=== PATIENT | female | born 1960 | race Caucasian/White ===

== ENCOUNTER 2017-04-28 21:38 | Emergency (ER) | payer BC ==
[~2017-04-28] VITALS: Ht 170.2 cm; Wt 64.2 kg
[2017-04-28 21:42] VITALS: BP 164/83; TEMP 36.6; Ht 170.2 cm; Wt 64.2 kg
[2017-04-29 00:34] VITALS: PULSE 61; O2SAT 99
--- NOTE | 2017-04-29 00:37 | EMERGENCY ROOM VISIT NOTE ---
History First contact with patient: 23:24 Chief Complaint: EYE ASSESSMENT Stated Complaint: FLASHING LIGHT IN LEFT EYE History of Present Illness The patient is a 56 year old female who presents to the Emergency Room with complaints of a left visual disturbance. The patient reports a prior history of retinal detachment in the right eye approximately 6-7 months ago. The patient is currently under the management of Dr. Sheffield at [facility]. Her last exam was 04/04/17, showing improvement of her right eye. She was warned that she is at high risk for similar detachment in the left eye within the next 12 months. The patient reports that she was doing a presentation this afternoon when she noticed a bright white flash in the left upper visual field. She then had mild central blurring of the eye that resolved within a few hours. This evening while driving, she then reported a similar bright white flash that happened several times with blurred vision that was similar to the afternoon incident. The visual disturbance then resolved until she was in the waiting room in our department with a similar bright flash and visual disturbance. At the current time, the patient denies any significant disturbance. She denies any recent head injury. She denies any history of temporal arteritis, CVA/TIA, chronic headaches, migraines or other neurologic conditions. Review of Systems 10 system review was performed and was negative except for pertinent positives and negatives as indicated in history of present illness Past Medical/Surgical History Medical Problems: (1) Retinal detachment Surgical Problems: (1) History of delivery Family History No significant family history Social History Smoking Status: Never Smoker Alcohol Use: occasionally Marital Status: Occupation Status: employed Current/Historical Medications No Active Prescriptions or Reported Meds Allergies Coded Allergies: No Known Allergies (Unverified , 04/28/17) Physical Exam Vital Signs Date Time Temp Pulse Resp B/P (MAP) Pulse Ox O2 Delivery O2 Flow Rate FiO2 04/29/17 00:34 61 16 99 Room Air 04/28/17 21:42 36.6 56 18 164/83 98 Room Air Right Eye Acuity: 20/25 Left Eye Acuity: 20/25 Physical Exam CONSTITUTIONAL: Healthy and well nourished. Alert and oriented X 3 with positive affect. She does not appear in any acute distress. HEENT: Normocephalic, atraumatic. Pupils equal, round and reactive. Facial edema. No globe deformity. No conjunctival injection. No visual field defects. EOMs intact. NECK: Full active range of motion without discomfort. No JVD or carotid bruits. RESPIRATORY: Clear to auscultation bilaterally with no wheezing, crackles, rhonchi or stridor. CARDIOVASCULAR: Regular rate and rhythm with no murmurs, rubs or gallops. MUSCULOSKELETAL: Full range of motion of all joints without discomfort. INTEGUMENTARY: No rash or other significant dermatologic conditions noted. NEUROLOGIC: Cranial nerves II-XII grossly intact. No focal neurologic deficits noted. Medical Decision & Procedures Laboratory Results Test 04/29/17 00:12 Erythrocyte Sedimentation Rate 4 mm/hr (0-21) ED Course Patient history and physical exam were performed. Nurse's notes were reviewed. Vital signs were reviewed, showing a blood pressure 164/83. Visual acuity was also performed and normal at 20/25 bilaterally. I did suggest contacting Dr. Hill who is motor inspection mechanic for ophthalmology. He suggested ordering a sedimentation rate to rule out temporal arteritis. Otherwise if normal, the patient was instructed to contact his office in the morning for an appointment. On reexamination, the patient has no tenderness to palpation of the temporal artery region. Sedimentation rate was normal at 4. The patient will call the office in the morning for an appointment. She was instructed to return to the emergency department overnight for any other concerning symptoms such as facial weakness, developing headache, nausea/ vomiting or other concerning symptoms. Medical Decision Patient presents with complaint of symptoms consistent with prior presentation related to a retinal detachment of the right eye. Case was further discussed with ophthalmology motor inspection mechanic, who did not suggest any additional imaging or laboratory studies except for a sedimentation rate to rule out the likelihood of temporal arteritis. History and clinical exam are not consistent with CVA/ TIA, thromboembolic event or meningitis. I do not suspect atypical migraine. Impression Primary Impression: Transient vision disturbance of left eye Departure Information Prescriptions No Active Prescriptions or Reported Meds Referrals Nicole Dawson M.D. (PCP) Patient Instructions My [facility]
== END 2017-04-29 00:39 | disposition home or self-care (01) ==
LOC: C.EDB 21:40
DX: H53.8 Other visual disturbances (principal); Z86.69 Personal history of other diseases of the nervous system and sense organs

== ENCOUNTER → 2018-01-23 | Outpatient (CLI) | payer OTHER ==
--- NOTE | 2018-01-23 15:41 | MAMMOGRAPHY REPORT ---
UNILATERAL LEFT DIGITAL DIAGNOSTIC MAMMOGRAM TOMOSYNTHESIS WITH CAD AND TARGETED LEFT ULTRASOUND: 01/23 CLINICAL HISTORY: 57-year-old woman called back from screening mammography for a mild asymmetry in th e middle one third of the superior left breast on the MLO view (tomosynthesis slice 26/60). TECHNIQUE: Spot compression left MLO 2D and tomosynthesis and left ML tomosynthesis views were obtain ed. COMPARISON: Comparison is made to exams dated: 01/13/2018 mammogram and 09/12/2016 mammogram - [facility] [place] [facility] Moreno. BREAST COMPOSITION: There are scattered areas of fibroglandular density in the left breast. FINDINGS: There is effacement of the asymmetry in the superior, middle one third of the left breast o n the spot compression MLO view and also the left ML tomosynthesis view. No evidence of architectura l distortion or other new suspicious mass. Further evaluation with ultrasound was performed. Targeted ultrasound was performed throughout the superior left breast including the retroareolar yahaira st. No suspicious solid or cystic mass identified. IMPRESSION: ACR BI-RADS CATEGORY 2: BENIGN, TARGETED ULTRASOUND ACR BI-RADS CATEGORY 2: BENIGN There is effacement of the left superior asymmetry, and no suspicious sonographic correlate identifie d. This most likely represented normal overlapping fibroglandular tissue. [facility]. These results and recommendations were discussed with the patient at the time of the exam. Approximately 10% of breast cancers are not detected with mammography. A negative mammographic report should not delay biopsy if a clinically suggestive mass is present. Nicole Ames M.D. ay/:01/23/2018 08:56:34 Paper Control Clerk: Mylene SANDOVAL(R)(M), [facility] letter sent: Normal 1/2 BI-RADS Code: ACR BI-RADS Category 2: Benign Ultrasound BI-RADS: ACR BI-RADS Category 2: Benign
== END | disposition home or self-care (01) ==
LOC: C.MAMM 08:13
PROVIDERS: ATTEND Physician Assistant
DX: R92.2 Inconclusive mammogram (principal)